=== PATIENT | female | born 1965 | race Caucasian/White ===

== ENCOUNTER 2017-05-25 14:26 | Emergency (ER) | payer OTHER ==
[~2017-05-25] VITALS: Ht 170.2 cm; Wt 78.0 kg
[2017-05-25 14:27] VITALS: TEMP 36.6; Ht 170.2 cm; Wt 78.0 kg
[2017-05-25 15:09] LABS: BASO % 0.1 %; BASO ABS # 0.01 K/uL (0-0.2); HEMATOCRIT 41.3 % (37-47); HEMOGLOBIN 14.3 g/dL (12.0-16.0); IG# 0.08 K/uL (0.00-0.02); LYMPH % 23.9 %; LYMPH ABS # 1.94 K/uL (1.2-3.4); MEAN CELL VOLUME 87.5 fL (80-100); MEAN CORPUSCULAR HEMOGLOBIN 30.3 pg (25-34); MEAN CORPUSCULAR HGB CONC 34.6 g/dl (32-36); MEAN PLATELET VOLUME 9.3 fL (7.4-10.4); MONO % 1.6 %; MONO ABS # 0.13 K/uL (0.11-0.59); NEUT % 73.4 %; NEUT ABS # 5.95 K/uL (1.4-6.5); PLATELET COUNT 396 K/uL (130-400); RED CELL DISTRIBUTION WIDTH CV 12.8 % (11.5-14.5); RED CELL DISTRIBUTION WIDTH SD 40.8 fL (36.4-46.3); WHITE BLOOD COUNT 8.11 K/uL (4.8-10.8)
--- NOTE | 2017-05-25 15:22 | DIAGNOSTIC IMAGING REPORT ---
SINGLE VIEW CHEST CLINICAL HISTORY: Weakness. Change in mental status. FINDINGS: An AP, portable, upright chest radiograph is obtained. No prior studies are available for comparison at the time of dictation. The cardiomediastinal silhouette is unremarkable. The lungs and pleural spaces are clear. No pneumothorax is seen. The bony thorax is grossly intact. IMPRESSION: No active disease in the chest. Electronically signed by: Roland Hughes M.D. 05/25/2017 3:21 PM Dictated Date/Time: 05/25/2017 3:21 PM
[2017-05-25 15:23] LABS: ALBUMIN 4.2 gm/dl (3.4-5.0); BLOOD UREA NITROGEN 17 mg/dl (7-18); CALCIUM 8.8 mg/dl (8.5-10.1); CARBON DIOXIDE 23 mmol/L (21-32); CREATININE 1.02 mg/dl (0.60-1.20); GLUCOSE 213 mg/dl (70-99); LIPASE 119 U/L (73-393); POTASSIUM 4.1 mmol/L (3.5-5.1); SODIUM 137 mmol/L (136-145)
--- NOTE | 2017-05-25 15:24 | DIAGNOSTIC IMAGING REPORT ---
HEAD WITHOUT CONTRAST (CT) CLINICAL HISTORY: 52 years-old Female with EVALUATE ALTERED MENTAL STATUS/WEAKNESS. Acute altered mental status with history of Kohler's palsy TECHNIQUE: Multiple axial CT images of the head were obtained without contrast. A dose lowering technique was utilized adhering to the principles of ALARA. CT DOSE: 690.05 mGycm COMPARISON: None. FINDINGS: No acute intracranial hemorrhage, midline shift, intracranial mass, hydrocephalus, territorial ischemia or abnormal extra-axial collection. The calvarium is intact. The paranasal sinuses, mastoid air cells, and middle ear cavities are clear. IMPRESSION: No acute intracranial abnormality. The above report was generated using voice recognition software. It may contain grammatical, syntax or spelling errors. Electronically signed by: Wyatt De Los Santos M.D. 05/25/2017 3:23 PM Dictated Date/Time: 05/25/2017 3:21 PM
[2017-05-25 15:26] LABS: PTT PATIENT 25.1 SECONDS (21.0-31.0)
[2017-05-25 15:36] LABS: ALKALINE PHOSPHATASE 72 U/L (45-117); ALT/SGPT 133 U/L (12-78); AST/SGOT 36 U/L (15-37); CKMB 0.7 ng/ml (0.5-3.6); TOTAL PROTEIN 7.8 gm/dl (6.4-8.2)
[2017-05-25] MEDS ORDERED: PRED20TA2 PO (16:15)
[2017-05-25] MEDS ORDERED: VALA1TAB31 PO (16:15)
--- NOTE | 2017-05-25 16:55 | EMERGENCY ROOM VISIT NOTE ---
History Report prepared by Evelia: Pacheco Sharp Under the Supervision of: Dr. Herbert Grewal D.O. First contact with patient: 14:30 Chief Complaint: NEURO SYMPTOMS Stated Complaint: NUMBNESS & TINGLING RT SIDED FACE, ARM HAND CHEST History of Present Illness The patient is a 52 year old female who presents to the Emergency Room with complaints of persistent right-sided body numbness and tingling for seven days. She was recently seen by her PCP seven days ago for similar symptoms. She notes the tingling and numbness started in the right side of her face and radiated to her right arm and hand. She reports the right side of her face swelled up and her right hand swelled up last week. She states that her PCP started her on Prednisone and Valtrex. She reports a history of being treated for Kohler's Palsy in the past. She states that her PCP informed her to come to the ED for further evaluation. She reports a slight headache that feels like pressure. She denies taking any medication for the headache. She notes that her symptoms seemed to return this morning at 0900. She reports the right side of her face felt swollen and the tingling radiated to her right arm and hand again. She also reports there was tingling and numbness to her toes. She states her right eyebrow, nose, and jaw felt swollen. She notes that it feels like something is stuck in her throat. She denies any trouble with extremity movement. She denies any other underlying medical conditions. Source of History: patient Onset: seven days Position: other (right-side body) Quality: numbness, other (tingling) Timing: other (persistent) Associated Symptoms: + headache Note: She reports right eye blurry vision, right side of face swelling, and right hand swelling. She denies any trouble with extremity movement. Review of Systems See HPI for pertinent positives & negatives. A total of 10 systems reviewed and were otherwise negative. Past Medical & Surgical Medical Problems: (1) Bronchitis (2) PNA (pneumonia) Surgical Problems: (1) H/O section (2) H/O: section Family History Hypertension Social History Smoking Status: Current Every Day Smoker Smokeless Tobacco Use: No Alcohol Use: none Drug Use: none Marital Status: Housing Status: lives with significant other Occupation Status: employed Current/Historical Medications Scheduled Prednisone (Prednisone Tab), 80 MG PO DAILY Valacyclovir Hcl (Valtrex), 1 GM PO TID Allergies Coded Allergies: No Known Allergies (Unverified , 05/25/17) Physical Exam Vital Signs Date Time Temp Pulse Resp B/P (MAP) Pulse Ox O2 Delivery O2 Flow Rate FiO2 05/25/17 17:04 72 18 132/75 96 Room Air 05/25/17 16:23 93 05/25/17 15:45 85 18 121/85 94 Room Air 05/25/17 14:27 36.6 96 18 168/103 96 Room Air Physical Exam VITAL SIGNS: were reviewed as above. GENERAL:Non-toxic in appearance. SKIN: Warm dry and pink. HEAD: Normocephalic and atraumatic. OROPHARYNX: Is clear and moist NECK: Supple without lymphadenopathy or meningismus. LUNGS: clear. HEART: Regular rate and rhythm. ABDOMEN: Soft and nontender. EXTREMITIES: Warm and well perfused. NEUROLOGICALLY: Awake alert and oriented without focal deficit. Cranial nerves 2 -12 are intact. There is no pronator drift. Cerebellar testing is within normal limits. There is no nystagmus. There is no facial droop. Speech is clear. Vision is grossly normal. MUSCULOSKELETAL: Good muscle tone. No evidence of trauma. Medical Decision & Procedures ER Provider Diagnostic Interpretation: Radiology results as stated below per my review and radiologist interpretation: SINGLE VIEW CHEST CLINICAL HISTORY: Weakness. Change in mental status. FINDINGS: An AP, portable, upright chest radiograph is obtained. No prior studies are available for comparison at the time of dictation. The cardiomediastinal silhouette is unremarkable. The lungs and pleural spaces are clear. No pneumothorax is seen. The bony thorax is grossly intact. IMPRESSION: No active disease in the chest. Electronically signed by: Roland Hughes M.D. 05/25/2017 3:21 PM Dictated Date/Time: 05/25/2017 3:21 PM HEAD WITHOUT CONTRAST (CT) CLINICAL HISTORY: 52 years-old Female with EVALUATE ALTERED MENTAL STATUS/WEAKNESS. Acute altered mental status with history of Kohler's palsy TECHNIQUE: Multiple axial CT images of the head were obtained without contrast. A dose lowering technique was utilized adhering to the principles of ALARA. CT DOSE: 690.05 mGycm COMPARISON: None. FINDINGS: No acute intracranial hemorrhage, midline shift, intracranial mass, hydrocephalus, territorial ischemia or abnormal extra-axial collection. The calvarium is intact. The paranasal sinuses, mastoid air cells, and middle ear cavities are clear. IMPRESSION: No acute intracranial abnormality. The above report was generated using voice recognition software. It may contain grammatical, syntax or spelling errors. Electronically signed by: Wyatt De Los Santos M.D. 05/25/2017 3:23 PM Dictated Date/Time: 05/25/2017 3:21 PM Laboratory Results 05/25/17 14:49 Red Blood Count 4.72, Mean Corpuscular Volume 87.5, Mean Corpuscular Hemoglobin 30.3, Mean Corpuscular Hemoglobin Concent 34.6, Mean Platelet Volume 9.3, Neutrophils (%) (Auto) 73.4, Lymphocytes (%) (Auto) 23.9, Monocytes (%) (Auto) 1.6, Eosinophils (%) (Auto) 0.0, Basophils (%) (Auto) 0.1, Neutrophils # (Auto) 5.95, Lymphocytes # (Auto) 1.94, Monocytes # (Auto) 0.13, Eosinophils # (Auto) 0.00, Basophils # (Auto) 0.01 05/25/17 14:49 Test 05/25/17 14:49 White Blood Count 8.11 K/uL (4.8-10.8) Red Blood Count 4.72 M/uL (4.2-5.4) Hemoglobin 14.3 g/dL (12.0-16.0) Hematocrit 41.3 % (37-47) Mean Corpuscular Volume 87.5 fL (80-100) Mean Corpuscular Hemoglobin 30.3 pg (25-34) Mean Corpuscular Hemoglobin Concent 34.6 g/dl (32-36) Platelet Count 396 K/uL (130-400) Mean Platelet Volume 9.3 fL (7.4-10.4) Neutrophils (%) (Auto) 73.4 % Lymphocytes (%) (Auto) 23.9 % Monocytes (%) (Auto) 1.6 % Eosinophils (%) (Auto) 0.0 % Basophils (%) (Auto) 0.1 % Neutrophils # (Auto) 5.95 K/uL (1.4-6.5) Lymphocytes # (Auto) 1.94 K/uL (1.2-3.4) Monocytes # (Auto) 0.13 K/uL (0.11-0.59) Eosinophils # (Auto) 0.00 K/uL (0-0.5) Basophils # (Auto) 0.01 K/uL (0-0.2) RDW Standard Deviation 40.8 fL (36.4-46.3) RDW Coefficient of Variation 12.8 % (11.5-14.5) Immature Granulocyte % (Auto) 1.0 % Immature Granulocyte # (Auto) 0.08 K/uL (0.00-0.02) Prothrombin Time 10.1 SECONDS (9.0-12.0) Prothromb Time International Ratio 1.0 (0.9-1.1) Activated Partial Thromboplast Time 25.1 SECONDS (21.0-31.0) Partial Thromboplastin Ratio 1.0 Anion Gap 10.0 mmol/L (3-11) Est Creatinine Clear Calc Drug Dose 67.9 ml/min Estimated GFR () 72.2 Estimated GFR (Non- 62.3 BUN/Creatinine Ratio 16.8 (10-20) Calcium Level 8.8 mg/dl (8.5-10.1) Magnesium Level 2.3 mg/dl (1.8-2.4) Total Bilirubin 0.3 mg/dl (0.2-1) Direct Bilirubin < 0.1 mg/dl (0-0.2) Aspartate Amino Transf (AST/SGOT) 36 U/L (15-37) Alanine Aminotransferase (ALT/SGPT) 133 U/L (12-78) Alkaline Phosphatase 72 U/L (45-117) Total Creatine Kinase 67 U/L (26-192) Creatine Kinase MB 0.7 ng/ml (0.5-3.6) Creatine Kinase MB Ratio 1.0 (0-3.0) Troponin I < 0.015 ng/ml (0-0.045) Total Protein 7.8 gm/dl (6.4-8.2) Albumin 4.2 gm/dl (3.4-5.0) Lipase 119 U/L (73-393) Thyroid Stimulating Hormone (TSH) 0.568 uIu/ml (0.300-4.500) Laboratory results as stated above per my review. ECG Per My Interpretation Indication: weakness Rate (beats per minute): 85 Rhythm: normal sinus Findings: no ectopy, other (No ST elevation) ED Course 1432: Previous medical records were reviewed. The patient was evaluated in room C9. A complete history and physical examination was performed. 1655: I reassessed the patient at this time. She is feeling better and resting comfortably. I discussed the results and treatment plan with the patient. I answered all pertaining questions that she had. She expressed understanding and verbalized agreement. The patient will be discharged home. Medical Decision Differentials include: Acute coronary syndrome, myocardial infarction, CVA, TIA , anemia, infection, pneumonia, UTI, pyelonephritis, poor nutrition, dehydration , electrolyte disturbance, and hypoglycemia. This is a 52-year-old female who presents to the ED with a chief complaint of numbness on the right side of her face and right arm. The patient states that she initially had symptoms last Thursday, 7 days ago. She reported some sensation of swelling and tingling to the right face and tingling in the right arm. She was started on prednisone and Valtrex because she was felt to maybe have Kohler's palsy. The patient states that she was okay this morning and today , this afternoon she developed right-sided facial tingling in right arm and hand tingling in her toes tingle as well. She also developed a knot in her chest while on her way here. She denied having any focal neurologic deficits. She was referred here by her PCP. Her neuro exam is completely normal. She has normal sensation and motor function and has no speech deficits. An EKG shows a normal sinus rhythm. A CT scan of the brain was negative for acute disease, chest x-ray was negative for acute disease, CBC is normal, complete metabolic panel was unremarkable, glucose was 213, troponin was negative, TSH was normal. The hyperglycemia is likely related to patient taking prednisone. She was told to have this rechecked. She is felt to be stable for discharge and outpatient follow-up. The patient was told to follow-up with her PCP for recheck and for neurology referral if symptoms persist. Return for new or worsening symptoms. Medication Reconcilliation Current Medication List: was personally reviewed by me Blood Pressure Screening Patient's blood pressure: Elevated blood pressure Blood pressure disposition: Elevated BP felt to be situational Impression Primary Impression: Paresthesia Additional Impression: Hyperglycemia Scribe Attestation The scribe's documentation has been prepared under my direction and personally reviewed by me in its entirety. I confirm that the note above accurately reflects all work, treatment, procedures, and medical decision making performed by me. Departure Information Dispostion Home / Self-Care Referrals Shanika Prajapati M.D. (PCP) Forms HOME CARE DOCUMENTATION FORM, IMPORTANT VISIT INFORMATION, WORK / SCHOOL INSTRUCTIONS Patient Instructions My [facility] Additional Instructions Your blood sugar today was elevated. This could be related to taking prednisone. After you are off the prednisone, see her doctor for recheck of your blood sugars. Other than her elevated blood sugar, your test results today were normal. Follow-up with your doctor for further care and evaluation in 1-2 days. Neurology referral recommended. Return to the emergency department for worsening or new symptoms or any concerns. You have been examined and treated today on an emergency basis only. This is not a substitute for, or an effort to provide, complete comprehensive medical care. It is impossible to recognize and treat all injuries or illnesses in a single emergency department visit. It is therefore important that you follow up closely with your doctor. Call as soon as possible for an appointment. Problem Qualifiers
[2017-05-25 17:04] VITALS: BP 132/75; PULSE 72; O2SAT 96
== END 2017-05-25 17:08 | disposition home or self-care (01) ==
LOC: C.EDB 14:27 → C.EDC 17:08
DX: R20.2 Paresthesia of skin (principal); R73.9 Hyperglycemia, unspecified

== ENCOUNTER 2017-05-28 10:00 | Emergency (ER) | payer OTHER ==
[~2017-05-28] VITALS: Ht 167.6 cm; Wt 76.7 kg
[~2017-05-28 10:00] MED LIST: PRED20TA2 PO; VALA1TAB31 PO
[2017-05-28 10:02] VITALS: TEMP 36.9; Ht 167.6 cm; Wt 76.7 kg
[2017-05-28] MEDS ORDERED: DiphenhydrAMINE HCL 50 MG/ML VIAL IV STA (10:40)
[2017-05-28] MEDS ORDERED: KETOROLAC TROMETHAMINE 30 MG/ML VIAL IV STA (10:40)
[2017-05-28] MEDS ORDERED: PROCHLORPERAZINE 5 MG/ML 2 ML VIAL IV STA (10:40)
[2017-05-28] MEDS ORDERED: SODIUM CHLORIDE 0.9% 1000ML 1,000 ML IV STA (10:40)
--- NOTE | 2017-05-28 10:49 | EMERGENCY ROOM VISIT NOTE ---
History Report prepared by Evelia: Charles Lew Under the Supervision of: Dr. Baldev Tariq M.D. First contact with patient: 10:16 Chief Complaint: NEURO SYMPTOMS Stated Complaint: LEFT SIDE TINGLE NUMBNESS - EYES WON'T FOCUS History of Present Illness The patient is a 52 year old female who presents to the Emergency Room with complaints of constant left sided tingling starting this morning. The patient states that last night she had an episode for 2-3 hours where she felt like she had bruising on her shoulders, she had a headache, and her eyes could not focus. She states that when she woke up this morning she had tingling in her left face, her left arm, and her left leg, and she states that she has pain in the back of her neck going into the back of her left shoulder. 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 The patient denies any chest pain, shortness of breath, recent travel, cough, and fever. She does not take any other medications, and she denies any other medical problems. The patient reports that she was in the ED a couple of days ago for similar symptoms but on her right side. Source of History: patient Onset: this morning Position: other (left side) Quality: tingling Timing: constant Associated Symptoms: + neck pain, No fevers, No cough, No chest pain, No SOB Note: Associated symptoms: Left shoulder pain, eyes unable to focus Review of Systems See HPI for pertinent positives and negatives. A total of ten systems were reviewed and were otherwise negative. Past Medical & Surgical Medical Problems: (1) Bronchitis (2) PNA (pneumonia) Surgical Problems: (1) H/O section (2) H/O: section Family History Hypertension Social History Smoking Status: Never Smoker Alcohol Use: none Drug Use: none Marital Status: Housing Status: lives with significant other Occupation Status: employed Current/Historical Medications Scheduled Prednisone (Prednisone Tab), 80 MG PO DAILY Valacyclovir Hcl (Valtrex), 1 GM PO TID Allergies Coded Allergies: No Known Allergies (Unverified , 05/25/17) Physical Exam Vital Signs Date Time Temp Pulse Resp B/P (MAP) Pulse Ox O2 Delivery O2 Flow Rate FiO2 05/28/17 15:25 84 18 128/80 95 05/28/17 14:39 87 14 128/74 97 Room Air 05/28/17 12:56 78 17 101/61 98 Room Air 05/28/17 11:20 69 17 113/76 97 Room Air 05/28/17 10:55 97 Room Air 05/28/17 10:54 97 Room Air 05/28/17 10:27 85 05/28/17 10:02 36.9 77 18 160/103 95 Room Air Physical Exam Physical Exam GENERAL: She is oriented to person, place, and time. She appears well- developed and well-nourished. She does not appear distressed. ____ HENT: Exam performed. Head: Normocephalic and atraumatic. Right Ear: External ear normal. No mastoid tenderness. Left Ear: External ear normal. No mastoid tenderness. Mouth/Throat: The oropharynx is clear and moist. No trismus in the jaw. No dental abscesses or uvula swelling. No oropharyngeal exudate or tonsillar abscesses. ____ EYES: Fundoscopic exam reveals no AV nicking or papilledema bilaterally. Conjunctivae and EOM are normal. Pupils are equal, round, and reactive to light. Right eye exhibits no discharge. Left eye exhibits no discharge. No scleral icterus. ____ NECK: Normal range of motion. Neck supple. No JVD present. No spinous process tenderness present. No carotid bruit present. No rigidity. No tracheal deviation and normal range of motion present. No Brudzinski's sign and no Kernig 's sign noted. ____ CV: Normal rate, regular rhythm, normal heart sounds and intact distal pulses. There is no peripheral edema. Palpable radial pulses bue. ____ PULM/CHEST: Effort normal and breath sounds normal. No respiratory distress. No stridor. She has no wheezes. She has no rales. Chest Wall: She exhibits no tenderness. ____ ABD: The abdomen is soft. Bowel sounds are normal. She has no distension. No mass is present. There is no tenderness. There is no rebound, no guarding, no Ramires's sign and no tenderness at McBurney's point. Rovsig negative MUSC/SKEL: Normal range of motion. There is no peripheral edema, tenderness or deformity. LYMPH: No cervical adenopathy. ____ NEURO: She is alert and oriented to person, place, and time. She has normal strength. No cranial nerve deficit or sensory deficit. Coordination and gait normal. GCS eye subscore is 4. GCS verbal subscore is 5. GCS motor subscore is 6. Cerebellar tests wnl. NIHSS was 0.____ SKIN: Skin is warm and dry. She is not diaphoretic. ____ PSYCH: She has a normal mood and affect. Her behavior is normal. Judgment and thought content normal. ____ Medical Decision & Procedures ER Provider Diagnostic Interpretation: Radiology results as stated below per my review and radiologist interpretation: CHEST ONE VIEW PORTABLE CLINICAL HISTORY: CHEST PAIN pain COMPARISON STUDY: No previous studies for comparison. FINDINGS: The bones soft tissues and hemidiaphragms are normal. The cardiomediastinal silhouette is normal. The lungs are clear. The pulmonary vasculature is normal. IMPRESSION: Negative chest. The above report was generated using voice recognition software. It may contain grammatical, syntax or spelling errors. Electronically signed by: Souleymane Adrian M.D. 05/28/2017 11:04 AM Dictated Date/Time: 05/28/2017 11:03 AM Laboratory Results 05/28/17 10:47 Red Blood Count 4.84, Mean Corpuscular Volume 88.0, Mean Corpuscular Hemoglobin 29.1, Mean Corpuscular Hemoglobin Concent 33.1, Mean Platelet Volume 9.2 05/28/17 10:47 Test 05/28/17 10:47 05/28/17 13:45 White Blood Count 7.02 K/uL (4.8-10.8) Red Blood Count 4.84 M/uL (4.2-5.4) Hemoglobin 14.1 g/dL (12.0-16.0) Hematocrit 42.6 % (37-47) Mean Corpuscular Volume 88.0 fL (80-100) Mean Corpuscular Hemoglobin 29.1 pg (25-34) Mean Corpuscular Hemoglobin Concent 33.1 g/dl (32-36) Platelet Count 362 K/uL (130-400) Mean Platelet Volume 9.2 fL (7.4-10.4) RDW Standard Deviation 41.6 fL (36.4-46.3) RDW Coefficient of Variation 13.1 % (11.5-14.5) Neutrophils % (Manual) 42.6 % Lymphocytes % (Manual) 38.9 % Variant Lymphocytes % (manual) 11.1 % Monocytes % (Manual) 5.6 % Eosinophils % (Manual) 0.9 % Basophils % (Manual) 0.9 % Neutrophils # (Manual) 2.99 K/uL (1.4-6.5) Total Absolute Neutrophils 2.99 K/uL (1.4-6.5) Lymphocytes # (Manual) 2.73 K/uL (1.2-3.4) Absolute Variant Lymphocytes 0.78 K/uL Total Absolute Lymphocytes 3.51 K/uL (1.2-3.4) Monocytes # (Manual) 0.39 K/uL (0.11-0.59) Eosinophils # (Manual) 0.06 K/uL (0-0.5) Basophils # (Manual) 0.06 K/uL (0-0.2) Hypersegmented Polys 1+ Microcytosis PRESENT Anion Gap 6.0 mmol/L (3-11) Est Creatinine Clear Calc Drug Dose 92.1 ml/min Estimated GFR () 108.2 Estimated GFR (Non- 93.4 BUN/Creatinine Ratio 19.2 (10-20) Calcium Level 9.0 mg/dl (8.5-10.1) Magnesium Level 2.6 mg/dl (1.8-2.4) Total Bilirubin 0.3 mg/dl (0.2-1) Direct Bilirubin < 0.1 mg/dl (0-0.2) Aspartate Amino Transf (AST/SGOT) 53 U/L (15-37) Alanine Aminotransferase (ALT/SGPT) 137 U/L (12-78) Alkaline Phosphatase 68 U/L (45-117) Total Protein 7.2 gm/dl (6.4-8.2) Albumin 3.8 gm/dl (3.4-5.0) Lipase 164 U/L (73-393) Troponin I < 0.015 ng/ml (0-0.045) Laboratory results reviewed by me Medications Administered Medications (Trade) Dose Ordered Sig/Yelena Route Start Time Stop Time Status Last Admin Dose Admin Sodium Chloride 1,000 ml @ 999 mls/hr Q1H1M STAT IV 05/28/17 10:40 05/28/17 11:40 DC 05/28/17 10:49 999 MLS/HR Diphenhydramine HCl (Benadryl Inj) 25 mg NOW STAT IV 05/28/17 10:40 05/28/17 10:43 DC 05/28/17 10:53 25 MG Prochlorperazine Edisylate (Compazine Inj) 10 mg NOW STAT IV 05/28/17 10:40 05/28/17 10:43 DC 05/28/17 10:49 10 MG Ketorolac Tromethamine (Toradol Inj) 15 mg NOW STAT IV 05/28/17 10:40 05/28/17 10:43 DC 05/28/17 10:52 15 MG ECG Per My Interpretation Indication: other (numbness) Rate (beats per minute): 65 Findings: other ([place], QRS, and QTc within lormal liits. No ST elevation or ST depression.) ED Course 1016: The patient was evaluated in room B7. A complete history and physical exam was performed. EMR reviewed, patient had a negative CT scan of the head chest x-ray and lab work done less than 5 days ago this week. 1040: Toradol 15mg IV, Compazine 10mg IV, Benadryl 25mg IV, Sodium Chloride 1000 ml @ 999 mls/hr IV 1150: Vital signs stable after receiving the Compazine injection and Benadryl, the patient states that he feels better. Her headache, chest pain, and numbness have resolved. Labs within normal limits with the exception of elevated liver enzymes and magnesium level. These are not thought to be the cause of the patient's paresthesias, chest pain, and headache. Will repeat the troponin, and if there is no increase, then patient will be discharged. The patient is scheduled for an EMG in a few days. 1506: Vital signs stable. The patient states that she feels much after after getting Compazine and IV fluids. She is not having any headache, paresthesias, chest pain, shortness of breath, and palpitations. Repeat troponin within normal limits the patient will be discharged with follow up with PCP and neurology. DISCHARGE - Plan of care discussed with family and questions answered. The family was given both verbal and printed discharge instructions. The family verbalized understanding and ability to comply. The family is to seek outpatient follow up as noted in the discharge instructions. The family verbalized understanding and ability to comply. The family is discharged in stable condition. The family was instructed to return for worsening symptoms. Medical Decision Vital signs stable after receiving the Compazine injection and Benadryl, the patient states that he feels better. Her headache, chest pain, and numbness have resolved. Labs within normal limits with the exception of elevated liver enzymes and magnesium level. These are not thought to be the cause of the patient's paresthesias, chest pain, and headache. The patient is scheduled for an EMG in a few days and has a neurology appointment scheduled in the next 30 days. I advised the patient and family member at bedside to follow-up as regularly scheduled for her EMG and to call the neurology office to see if her appointment can be moved up. They agreed. DISCHARGE - Plan of care discussed with family and questions answered. The family was given both verbal and printed discharge instructions. The family verbalized understanding and ability to comply. The family is to seek outpatient follow up as noted in the discharge instructions. The family verbalized understanding and ability to comply. The family is discharged in stable condition. The family was instructed to return for worsening symptoms. Medication Reconcilliation Current Medication List: was personally reviewed by me Blood Pressure Screening Patient's blood pressure: Normal blood pressure Impression Primary Impression: Chest pain, unspecified Additional Impressions: Migraine Paresthesia Scribe Attestation The scribe's documentation has been prepared under my direction and personally reviewed by me in its entirety. I confirm that the note above accurately reflects all work, treatment, procedures, and medical decision making performed by me. The chart was completed utilizing [employer] voice recognition software. Grammatical errors, random word insertions, pronoun errors, and incomplete sentences are an occasional consequence of this system due to software limitations, ambient noise, and hardware issues. Any formal questions or concerns about the content, text, or information contained within the body of this dictation should be directly addressed to the physician for clarification. Departure Information Dispostion Home / Self-Care Referrals Shanika Prajapati M.D. (PCP) Forms HOME CARE DOCUMENTATION FORM, IMPORTANT VISIT INFORMATION, WORK / SCHOOL INSTRUCTIONS Patient Instructions Chest Pain - [facility], ED Headache Migraine, ED Paraesthesias, Headache Migraine Meds Lifestyle, Headache Migraine Triggers Prevent, My [facility] Additional Instructions Follow-up for your regular scheduled EMG appointment on Thursday Call the neurologist to your space follow-up with and see if your appointment can move moved up Follow up with your primary care physician in 1-7 days Problem Qualifiers Additional Impressions: Migraine Migraine type: unspecified Status migrainosus presence: without status migrainosus Intractability: not intractable Qualified Codes: G43.909 - Migraine, unspecified, not intractable, without status migrainosus
[2017-05-28 10:55] VITALS: O2SAT 97
[2017-05-28 11:05] LABS: HEMATOCRIT 42.6 % (37-47); HEMOGLOBIN 14.1 g/dL (12.0-16.0); MEAN CORPUSCULAR HEMOGLOBIN 29.1 pg (25-34); MEAN CORPUSCULAR HGB CONC 33.1 g/dl (32-36); MEAN PLATELET VOLUME 9.2 fL (7.4-10.4); PLATELET COUNT 362 K/uL (130-400); RED CELL DISTRIBUTION WIDTH CV 13.1 % (11.5-14.5); RED CELL DISTRIBUTION WIDTH SD 41.6 fL (36.4-46.3); WHITE BLOOD COUNT 7.02 K/uL (4.8-10.8)
--- NOTE | 2017-05-28 11:05 | DIAGNOSTIC IMAGING REPORT ---
CHEST ONE VIEW PORTABLE CLINICAL HISTORY: CHEST PAIN pain COMPARISON STUDY: No previous studies for comparison. FINDINGS: The bones soft tissues and hemidiaphragms are normal. The cardiomediastinal silhouette is normal. The lungs are clear. The pulmonary vasculature is normal. IMPRESSION: Negative chest. The above report was generated using voice recognition software. It may contain grammatical, syntax or spelling errors. Electronically signed by: Souleymane Adrian M.D. 05/28/2017 11:04 AM Dictated Date/Time: 05/28/2017 11:03 AM
[2017-05-28 11:28] LABS: BLOOD UREA NITROGEN 14 mg/dl (7-18); CREATININE 0.73 mg/dl (0.60-1.20); GLUCOSE 98 mg/dl (70-99)
[2017-05-28 11:29] LABS: CARBON DIOXIDE 28 mmol/L (21-32); POTASSIUM 4.1 mmol/L (3.5-5.1); SODIUM 139 mmol/L (136-145)
[2017-05-28 11:30] LABS: ALBUMIN 3.8 gm/dl (3.4-5.0); ALT/SGPT 137 U/L (12-78); AST/SGOT 53 U/L (15-37); LIPASE 164 U/L (73-393)
[2017-05-28 11:35] LABS: ALKALINE PHOSPHATASE 68 U/L (45-117); TOTAL PROTEIN 7.2 gm/dl (6.4-8.2)
[2017-05-28 15:25] VITALS: BP 128/80; PULSE 84; O2SAT 95
== END 2017-05-28 15:23 | disposition home or self-care (01) ==
LOC: C.EDB 10:01
DX: R07.9 Chest pain, unspecified (principal); G43.909 Migraine, unspecified, not intractable, without status migrainosus; R20.2 Paresthesia of skin; Z82.49 Family history of ischemic heart disease and other diseases of the circulatory system

== ENCOUNTER → 2017-06-23 | Outpatient (CLI) | payer OTHER ==
[~2017-06-23] MED LIST changes: +GADAVIST IV PRN
--- NOTE | 2017-06-23 13:39 | DIAGNOSTIC IMAGING REPORT ---
MRI OF THE BRAIN WITHOUT AND WITH IV CONTRAST CLINICAL HISTORY: R29.90 Stroke-like symptoms, persistent numbness right face and arm. COMPARISON STUDY: Noncontrast head CT dated 05/25/2017 TECHNIQUE: MRI of the brain was performed from the vertex to the skull base utilizing various T1 and T2 weighted sequences. Following the IV administration of 7.5 mL of Gadavist contrast, additional enhanced images were obtained. FINDINGS: Sagittal T1, axial diffusion, proton density and T2 weighted axial, coronal FLAIR, and pre and post axial T1-weighted images were acquired. These were supplemented with post gadolinium coronal T1 weighted images. No intra or extra-axial mass lesions are visualized. Axial diffusion-weighted images reveal no evidence of acute or subacute infarction. There is no evidence of ventricular dilatation. Proton density T2-weighted and FLAIR images reveal scattered foci of increased T2 signal within the white matter, likely on a small vessel basis, although greater than expected for age. Demyelinating disease cannot be excluded. There are no abnormal flow voids. There is no evidence of pathologic enhancement. IMPRESSION: 1. No evidence of acute or subacute infarction 2. No evidence of intracranial mass 3. Scattered nonspecific foci of increased T2 and FLAIR signal within the white matter, likely on a small vessel basis. Given the clinical symptomatology, demyelinating disease cannot be excluded. Electronically signed by: Rodger Evans M.D. 06/23/2017 1:38 PM Dictated Date/Time: 06/23/2017 1:33 PM
== END | disposition home or self-care (01) ==
LOC: C.MRIBC 10:04
PROVIDERS: ATTEND Psychiatry & Neurology Neurology
DX: R29.90 Unspecified symptoms and signs involving the nervous system (principal)

== ENCOUNTER → 2017-07-10 | Outpatient (CLI) | payer OTHER ==
[~2017-07-10] MED LIST changes: -GADAVIST IV PRN
== END | disposition home or self-care (01) ==
LOC: C.LABBFT 09:15
PROVIDERS: ATTEND Psychiatry & Neurology Neurology
DX: G37.9 Demyelinating disease of central nervous system, unspecified (principal)

== ENCOUNTER → 2017-07-24 | Day surgery (SDC) | payer OTHER ==
[2017-07-24] VITALS (9 sets, daily range): BP systolic 112–143; BP diastolic 69–80; PULSE 63–78; TEMP 36.9–37.1; O2SAT 94–97; Ht 167.6 cm; Wt 76.3 kg
[~2017-07-24] VITALS: Ht 167.6 cm; Wt 76.3 kg
[~2017-07-24] MED LIST changes: +ACETAMINOPHEN 500 MG TAB PO PRN
--- NOTE | 2017-07-24 09:02 | Discharge Instructions ---
Discharge Instructions Procedure Procedure Date: July 24, 2017. Reason for visit: Demyelinating Disorder *W/ Opening Pressure*. Discharge Discharge Date: July 24, 2017. Discharge Diagnosis: Demyelinating disorder Instructions Activity Recommendations: 1 Day-May resume regular activity, 48 Hours of decreased exertion, 1 Day with no exercise/sex/sports, 1 Day with no driving/ machine use Return to School/Work: limitations (light activity x 48 hours) Recommended Home Diet: Resume Previous Diet Provider Instructions: ACTIVITY RECOMMENDATIONS: * Rest today. * Resume regular activity in one day. MEDICATIONS: * May take Tylenol or Ibuprofen as needed for pain. DIET: * Resume previous diet. SPECIAL CARE INSTRUCTIONS: Call your doctor if: * Temperature above 101 degrees F. * Pain not relieved by pain medicine ordered. * Increased drainage or redness from incision. * Notify your doctor with any questions or concerns. Call your doctor or go to the nearest Emergency Department if you experience: * Increased chest pain or shortness of breath. FOLLOW UP VISIT: Follow-up with Referring Physician as scheduled. Allergies Coded Allergies: No Known Allergies (Unverified , 07/24/17) Kristin Briggs Recommendations: Call your doctor if: * Temperature above 101 degrees * Pain not relieved by pain medicine ordered * There is increased drainage or redness from any incision * You have any unanswered questions or concerns. Your Doctors Instructions noted above were prepared by provider Roland Hughes. Patient Signature Section: Patient Instructions Signature Page Mamie Jefferson Patient (or Guardian) Signature/Date: I have read and understand the instructions given to me by my caregivers. Caregiver/RN/Doctor Signature/Date: The above-named patient and/or guardian has received patient instructions on this date. + Original Patient Signature Page (only) stays with chart. Please make copy for patient.
--- NOTE | 2017-07-24 09:13 | DIAGNOSTIC IMAGING REPORT ---
FLUOROSCOPIC GUIDED LUMBAR PUNCTURE CLINICAL HISTORY: Demyelinating disorder. PROCEDURE: The risks, benefits, and alternatives to the procedure is discussed with the patient who voiced understanding. Written informed consent was obtained. The patient was placed prone on the fluoroscopy table. The lower back was prepped and draped in the usual sterile fashion. 1% lidocaine was used for local anesthesia. A 22-gauge spinal needle was inserted into the L3-L4 interlaminar space, opening pressures were assessed, and approximately 10 cc of clear colorless cerebrospinal fluid was removed. The patient tolerated the procedure well. There were no immediate complications. The patient was then transported to the medical treatment unit for further observation. Fluoroscopy time: 0.4 minutes Opening pressure: 18 cm of water IMPRESSION: Fluoroscopic guided lumbar puncture with removal of approximately 10 cc of cerebrospinal fluid. There were no immediate complications. Electronically signed by: Roland Hughes M.D. 07/24/2017 9:12 AM Dictated Date/Time: 07/24/2017 9:11 AM
[2017-07-24 09:23] LABS: CSF TOTAL PROTEIN 45.4 mg/dl (15.0-45.0)
== END | disposition home or self-care (01) ==
LOC: C.ACU 07:34
PROVIDERS: ATTEND Psychiatry & Neurology Neurology
DX: G37.9 Demyelinating disease of central nervous system, unspecified (principal)

== ENCOUNTER → 2017-11-10 | Outpatient (CLI) | payer OTHER ==
--- NOTE | 2017-11-10 14:29 | DIAGNOSTIC IMAGING REPORT ---
MRI OF THE CERVICAL SPINE WITHOUT CONTRAST CLINICAL HISTORY: Demyelinating disorder. Possible multiple sclerosis. Extremity numbness. Back pain. COMPARISON: None. TECHNIQUE: Utilizing a 1.5 Carmita magnet and dedicated coil, multiplanar, multiecho imaging of the cervical spine was performed without IV contrast. FINDINGS: Alignment of the cervical spine is anatomic with the exception of slight reversal of the normal lordosis within the mid cervical spine. Vertebral body heights are maintained. There is no suspicious marrow replacement. There is marked multilevel disc space narrowing and facet arthrosis. No intracanalicular mass or fluid collection is present. Cervical cord signal and caliber are normal. Paravertebral soft tissues are unremarkable. Disc space narrowing C2-C3: The central canal and right neural foramen are patent. There is mild narrowing of the left neural foramen. C3-C4: The central canal and right neural foramen are patent. There is moderate left neural foraminal narrowing predominantly due to facet arthrosis. C4-C5: Mild posterior discussed by complex results in mild narrowing of the central canal. Right neural foramen is patent. Moderate to severe left neural foraminal stenosis is noted due to uncovertebral hypertrophy and facet arthrosis. C5-C6: Marked disc space narrowing is noted with disc osteophyte complex that contacts the ventral aspect of the cord. There is moderate central canal narrowing at this level. Severe right and moderate left neural foraminal stenosis is noted. C6-C7: Marked disc space narrowing is noted with disc osteophyte complex results in mild to moderate narrowing of the central canal. There is mild bilateral neural foraminal stenosis. C7-T1: Central canal neural foramen are patent. IMPRESSION: 1. Normal cervical cord signal and caliber. No evidence for cervical cord demyelination. 2. Moderate to severe multilevel degenerative disc disease and facet arthrosis, as detailed above. Moderate central canal narrowing at C5-C6 with moderate to severe multilevel neural foraminal stenosis. Electronically signed by: Conrado Enriquez M.D. 11/10/2017 2:28 PM Dictated Date/Time: 11/10/2017 2:14 PM
== END | disposition home or self-care (01) ==
LOC: C.MRI 13:10
PROVIDERS: ATTEND Psychiatry & Neurology Neurology
DX: M50.33 Other cervical disc degeneration, cervicothoracic region (principal); M47.812 Spondylosis without myelopathy or radiculopathy, cervical region; M48.03 Spinal stenosis, cervicothoracic region; G37.9 Demyelinating disease of central nervous system, unspecified; G35 Multiple sclerosis